=== PATIENT | female | born 1975 | race Caucasian/White ===

== ENCOUNTER → 2018-06-08 | Outpatient (CLI) | payer BC | LOC: MC.RAD 13:30 | DX: Z12.31 Encounter for screening mammogram for malignant neoplasm of breast (principal); N63.10 Unspecified lump in the right breast, unspecified quadrant; N63.20 Unspecified lump in the left breast, unspecified quadrant ==

== ENCOUNTER → 2018-06-14 | Outpatient (CLI) | payer BC | LOC: MC.RAD 10:45 | DX: N63.21 Unspecified lump in the left breast, upper outer quadrant (principal); N63.10 Unspecified lump in the right breast, unspecified quadrant ==

== ENCOUNTER → 2018-12-10 | Outpatient (CLI) | payer BC | LOC: MC.RAD 12:56 | DX: N63.11 Unspecified lump in the right breast, upper outer quadrant (principal) ==

== ENCOUNTER → 2020-08-18 | Outpatient (CLI) | payer OTHER | LOC: MC.RAD 08:30 | DX: Z12.31 Encounter for screening mammogram for malignant neoplasm of breast (principal); N63.10 Unspecified lump in the right breast, unspecified quadrant ==

== ENCOUNTER → 2020-08-20 | Outpatient (CLI) | payer OTHER | LOC: MC.RAD 09:11 | DX: N60.01 Solitary cyst of right breast (principal) ==

== ENCOUNTER → 2021-11-18 | Outpatient (CLI) | payer OTHER | LOC: MC.RAD 10-05 11:30 | DX: Z12.31 Encounter for screening mammogram for malignant neoplasm of breast (principal) ==

== ENCOUNTER → 2023-08-15 | Outpatient (CLI) | payer BC ==
[~2023-08-15] MED LIST: NAPROSYN500 MG PO; NORCO 325 MG-7.1 TAB PO; NURTEC ODT75 MG PO; SINGULAIR 110 MG/TAB PO; ZANAFLEX2 MG PO
== END ==
LOC: MC.RAD 12:56
DX: N60.01 Solitary cyst of right breast (principal); R92.0 Mammographic microcalcification found on diagnostic imaging of breast

== ENCOUNTER → 2023-08-23 | Outpatient (CLI) | payer BC | LOC: MC.RAD 08:21 | DX: R92.0 Mammographic microcalcification found on diagnostic imaging of breast (principal) ==